=== PATIENT | female | born 1965 | race African-American/Black ===

== ENCOUNTER 2017-12-27 02:47 | Emergency (ER) | payer MEDICAID, OTHER ==
[~2017-12-27] VITALS: Ht 167.6 cm; Wt 50.0 kg
[2017-12-27 05:10] VITALS: BP 113/69
[2017-12-27 06:29] LABS: CLARITY URINE CLEAR (CLEAR); COLOR URINE DARK YELLOW (YELLOW); KETONES URINE TRACE (NEGATIVE); LEUKOCYTE ESTERASE URINE TRACE (NEGATIVE); NITRITE URINE POSITIVE (NEGATIVE); OCCULT BLOOD URINE NEGATIVE (NEGATIVE); PROTEIN URINE TRACE (NEGATIVE)
[2017-12-27 06:49] LABS: UCG SCREEN NEGATIVE
== END 2017-12-27 08:21 | disposition home or self-care (01) ==
LOC: ER 03:02
DX: N39.0 Urinary tract infection, site not specified (principal); N76.0 Acute vaginitis; F17.200 Nicotine dependence, unspecified, uncomplicated
CPT/HCPCS: 81003; 81025; 87077; 87086; 87186; 87210; 99284

== ENCOUNTER 2018-04-09 11:30 | Emergency (ER) | payer MEDICAID ==
[~2018-04-09] VITALS: Ht 167.6 cm; Wt 54.5 kg
[2018-04-09 11:55] VITALS: BP 114/85
[2018-04-09 12:49] LABS: CLARITY URINE CLOUDY (CLEAR); COLOR URINE DARK YELLOW (YELLOW); KETONES URINE TRACE (NEGATIVE); LEUKOCYTE ESTERASE URINE 3+ (NEGATIVE); NITRITE URINE NEGATIVE (NEGATIVE); OCCULT BLOOD URINE TRACE (NEGATIVE); PH URINE 6.5 (4.5-8.0); PROTEIN URINE TRACE (NEGATIVE); SPECIFIC GRAVITY URINE 1.024 (1.005-1.030)
== END 2018-04-09 14:31 | disposition home or self-care (01) ==
LOC: ER 14:18
DX: N30.90 Cystitis, unspecified without hematuria (principal); F17.200 Nicotine dependence, unspecified, uncomplicated
CPT/HCPCS: 81025; 87077; 99284

== ENCOUNTER 2018-06-08 23:27 | Emergency (ER) | payer MEDICAID ==
[~2018-06-08] VITALS: Ht 167.6 cm; Wt 58.0 kg
[2018-06-08] MEDS ORDERED: AZITHROMYCIN 500 MG TABLET PO ONE (23:45)
[2018-06-08] MEDS ORDERED: LIDOCAINE HCL/PF 1% 2ML VIAL INFIL ONE (23:45)
[2018-06-08] MEDS ORDERED: CEFTRIAXONE SODIUM 250 MG/VIAL IM ONE (23:45)
[2018-06-09] MEDS ORDERED: DIPHENHYDRAMINE HCL/ZINC ACET 28 GM CREAM TOP ONE
[2018-06-09 01:00] VITALS: BP 115/64
== END 2018-06-09 01:00 | disposition home or self-care (01) ==
LOC: ER 23:27
DX: T14.8XXA Other injury of unspecified body region, initial encounter (principal); Z20.2 Contact with and (suspected) exposure to infections with a predominantly sexual mode of transmission; F12.10 Cannabis abuse, uncomplicated; F17.200 Nicotine dependence, unspecified, uncomplicated; W57.XXXA Bitten or stung by nonvenomous insect and other nonvenomous arthropods, initial encounter; Y93.89 Activity, other specified; Y92.89 Other specified places as the place of occurrence of the external cause; Y99.8 Other external cause status
CPT/HCPCS: 96372; 99283; J0696; J3490

== ENCOUNTER 2018-09-11 15:21 | Emergency (ER) | payer MEDICAID ==
[~2018-09-11] VITALS: Ht 167.6 cm; Wt 50.0 kg
[2018-09-11 15:29] VITALS: BP 112/58
[2018-09-11] MEDS ORDERED: ONDANSETRON 4MG ODT PO STA (16:30)
[2018-09-11] MEDS ORDERED: ACETAMINOPHEN 325MG TABLET PO STA (16:30)
[2018-09-11 17:11] LABS: CLARITY URINE CLEAR (CLEAR); COLOR URINE YELLOW (YELLOW); KETONES URINE NEGATIVE (NEGATIVE); LEUKOCYTE ESTERASE URINE 1+ (NEGATIVE); NITRITE URINE NEGATIVE (NEGATIVE); OCCULT BLOOD URINE NEGATIVE (NEGATIVE); PROTEIN URINE NEGATIVE (NEGATIVE); SPECIFIC GRAVITY URINE 1.004 (1.005-1.030); UROBILINOGEN URINE 0.2 E.U./dL (0.2-1.0)
== END 2018-09-11 17:45 | disposition home or self-care (01) ==
LOC: ER 15:21
DX: N76.0 Acute vaginitis (principal); N39.0 Urinary tract infection, site not specified; F12.10 Cannabis abuse, uncomplicated; W57.XXXA Bitten or stung by nonvenomous insect and other nonvenomous arthropods, initial encounter; Y93.89 Activity, other specified; Y92.018 Other place in single-family (private) house as the place of occurrence of the external cause
CPT/HCPCS: 81003; 99283; Q0162

== ENCOUNTER 2019-03-18 08:30 | Emergency (ER) | payer SELFPAY ==
[~2019-03-18] VITALS: Ht 167.6 cm; Wt 50.0 kg
[2019-03-18 11:15] VITALS: BP 158/86
[2019-03-18] MEDS ORDERED: ONDANSETRON 4MG ODT PO ONE (11:15)
== END 2019-03-18 11:34 | disposition home or self-care (01) ==
LOC: ER 08:30
DX: S40.262A Insect bite (nonvenomous) of left shoulder, initial encounter (principal); F12.10 Cannabis abuse, uncomplicated; W57.XXXA Bitten or stung by nonvenomous insect and other nonvenomous arthropods, initial encounter; Y93.89 Activity, other specified; Y92.89 Other specified places as the place of occurrence of the external cause; Y99.8 Other external cause status
CPT/HCPCS: 99283; Q0162